=== PATIENT | female | born 1960 | race Caucasian/White ===

== ENCOUNTER 2016-05-04 13:59 | Emergency (ER) ==
[2016-05-04 14:34] LABS: URINE CULTURE NEEDED? NO; URINE MICRO REVIEW NEEDED? NO; URINE SOURCE CLEAN CATCH
[2016-05-04 14:37] LABS: BILIRUBIN URINE NEGATIVE (NEGATIVE); BLOOD URINE MODERATE (NEGATIVE); COLOR YELLOW; GLUCOSE URINE NEGATIVE (NEGATIVE); LEUKOCYTES URINE TRACE (NEGATIVE); NITRITE URINE NEGATIVE (NEGATIVE); PH URINE 5.5; PROTEIN URINE 30 mg/dL (NEGATIVE); SP GRAVITY URINE 1.019; TURBIDITY URINE CLEAR (CLEAR); UROBILINOGEN URINE NORMAL (NORMAL)
[2016-05-04 14:38] LABS: UR EPITHELIAL CELLS <10 /HPF (<10); URINE BACTERIA NEGATIVE /HPF; URINE RBC TNTC /HPF (<10)
[2016-05-04] MEDS ORDERED: TORADOL IV ONE (14:38)
[2016-05-04] MEDS ORDERED: ZOFRAN IV ONE (14:39)
--- NOTE | 2016-05-04 14:42 | PROVIDER DOCUMENTATION ---
HPI-Abdominal Pain/GI Problem - General Chief Complaint: Flank Pain Stated Complaint: KIDNEY/BACK PAIN Time Seen by Provider: 05/04/16 14:18 Source: patient Allergies/Adverse Reactions: Patient Allergies Allergy/AdvReac Type Severity Reaction Status Date / Time oseltamivir phosphate * Allergy Severe ANAPHYLAXIS Verified 05/04/16 14:36 [From Tamiflu] Penicillins Allergy Intermediate HIVES Verified 05/04/16 14:36 Home Medications: Atenolol 25 mg PO DAILY 10/15/13 - History of Present Illness-ABD Nature of Presenting Problems: patient is a 56 y/o F that presents with left flank pain that radiates to her back and LLQ. She has n/v and chills. symptoms began 24 hours ago and have been intermitted. patient denies fever. has had some hematuria. Abdominal Pain Onset Location: reports: flank (left) Pain Radiation: reports: LLQ, back Quality of Pain: reports: sharp Severity in ED: reports: moderate Onset/Duration: reports: abrupt, 24 hours ago Timing: reports: still present, intermittent Activities at Onset: reports: none Exposure to sick contacts?: No Modifying Factors: worse with: urinating Associated Symptoms: reports: back/neck pain, genitourinary problems, nausea, vomiting. denies: arm pain, chest pain, diarrhea, dizziness, EENT symptoms, fever/chills, shortness of breath Similar Symptoms Previously?: No Recently seen or treated by another doctor?: No Review of Systems - Adult - REVIEW OF SYSTEMS - ADULT Constitutional: denies: chills, fever Eyes: reports: no symptoms reported Ears, Nose, Mouth & Throat: reports: no symptoms reported Cardiovascular: denies: chest pain, palpitations, syncope Respiratory: denies: cough, shortness of breath, wheezing Gastrointestinal: reports: abdominal pain, nausea, vomiting. denies: diarrhea Genitourinary: reports: dysuria, flank pain. denies: hematuria, urinary retention, urgency Musculoskeletal: reports: back pain. denies: joint pain Integumentary: reports: no symptoms reported Neurological: reports: no symptoms reported Psychiatric: reports: no symptoms reported Endocrine: reports: no symptoms reported Hematologic/Lymphatic: reports: no symptoms reported Allergic/Immunologic: reports: no symptoms reported All Other Systems: Reviewed and Negative Past History - Adult - PAST MEDICAL HISTORY-ADULT Review of Records: reports: Old Records Reviewed, Nursing Assessment Review, Medications Reviewed Cardiovascular: reports: arrhythmia (tachycardia), HTN - PRIOR SURGERIES/PROCEDURES Surgical/Procedure History: reports: reviewed, not pertinent - IMMUNIZATION STATUS Childhood Immunizations: See Nurse Assessment Flu Vaccine: See Nurse Assessment - FAMILY HISTORY Family History: CVA/TIA - SOCIAL HISTORY Smoking: non-smoker Living Situation: family Physical Exam-General - PHYSICAL EXAM-ADULT Initial Vital Signs Reviewed: Yes - CONSTITUTIONAL General Appearance: alert, mild distress, anxious - EYES Eyes: PERRL/EOMI, pink conjunctivae - HEAD, EARS, NOSE, MOUTH & THROAT HENMT: normocephalic/atraumatic, moist mucous membranes, normal ENT inspection - NECK Neck: full range of motion, normal inspection. negative: lymphadenopathy - RESPIRATORY Respiratory: lungs clear, normal breath sounds, no respiratory distress, no accessory muscle use - CARDIOVASCULAR Cardiovascular: regular rate, rhythm, no edema, no murmur - GASTROINTESTINAL (ABDOMEN) Abdominal Exam: normal bowel sounds, non tender, soft, no organomegaly, no pulsatile mass - MUSCULOSKELETAL Back Exam: no vertebral tenderness, CVA tenderness (left) Extremity: normal range of motion, normal inspection - SKIN Integumentary: normal color, warm/dry - NEUROLOGIC Neurologic: grossly normal, no motor/sensory deficits - PSYCHIATRIC Psych/Mental Status: oriented x 3, anxious Progress - PLAN OF CARE/RESULTS Progress/Plan/Lab Results: Vital Signs Temp Pulse Resp BP Pulse Ox 05/04/16 14:03 97.2 F L 98 H 16 150/98 100 oseltamivir phosphate * [From Tamiflu] Allergy (Severe, Verified 05/04/16 14:36) ANAPHYLAXIS Penicillins Allergy (Intermediate, Verified 05/04/16 14:36) HIVES Atenolol 25 mg PO DAILY 10/15/13 I&O 05/03/16 05/04/16 05/05/16 06:59 06:59 06:59 Output Total 15 Balance -15 Laboratory 05/04/16 14:20 Urine Source CLEAN CATCH Urine Color YELLOW Urine Turbidity CLEAR Urine pH 5.5 Ur Specific [place] 1.019 Urine Protein 30 A Ur Glucose (Stick) NEGATIVE Ur Ketones (Stick) NEGATIVE Urine Blood MODERATE A Urine Nitrite NEGATIVE Urine Bilirubin NEGATIVE Urobilinogen Dipstick NORMAL Urine Leukocytes TRACE A Urine WBC (Auto) 10-20 A Urine RBC (Auto) TNTC A U Epithel Cells (Auto) <10 Urine Bacteria (Auto) NEGATIVE Orders Category Date Time Status RENAL STONE SEARCH [CT] Stat Exams 05/04/16 14:33 Ordered BASIC METABOLIC PANEL [CHEM] Stat Lab 05/04/16 14:32 Uncollected CBC WITH ELECTRONIC DIFF [HEME] Stat Lab 05/04/16 14:32 Uncollected UA Reflex [URINALYSIS W/POSS RFLX CULT] [URINALYSIS] Lab 05/04/16 14:20 Completed Stat URIC ACID [CHEM] Stat Lab 05/04/16 14:32 Uncollected 0.9% Sodium Chloride Inj [Ns] 1,000 ml Med 05/04/16 14:45 Ordered IV 999 mls/hr Ketorolac [Toradol] Med 05/04/16 14:38 Discontinued 30 mg IV NOW ONE Ondansetron [Zofran] Med 05/04/16 14:39 Once 4 mg IV NOW ONE plan of care-labs, meds, ct rss Vital Signs Temp Pulse Resp BP Pulse Ox 05/04/16 14:03 97.2 F L 98 H 16 150/98 100 oseltamivir phosphate * [From Tamiflu] Allergy (Severe, Verified 05/04/16 14:36) ANAPHYLAXIS Penicillins Allergy (Intermediate, Verified 05/04/16 14:36) HIVES Atenolol 25 mg PO DAILY 10/15/13 I&O 05/03/16 05/04/16 05/05/16 06:59 06:59 06:59 Output Total 15 Balance -15 Laboratory 05/04/16 05/04/16 05/04/16 14:43 14:43 14:20 WBC 8.83 RBC 5.11 Hgb 14.5 Hct 43.1 MCV 84.3 MCH 28.4 MCHC 33.6 RDW Std Deviation 14.1 Plt Count 288 MPV 10.1 Immature Gran % (Auto) 0.0 Neut % (Auto) 62.4 Lymph % (Auto) 29.6 [place] % (Auto) 6.9 Eos % (Auto) 0.9 Baso % (Auto) 0.2 Immature Gran # (Auto) 0.00 Neut # (Auto) 5.51 Lymph # (Auto) 2.61 [place] # (Auto) 0.61 H Eos # (Auto) 0.08 Baso # (Auto) 0.02 Sodium 139 Potassium 4.2 Chloride 99 Carbon Dioxide 25 Anion Gap 15 BUN 10 Creatinine 0.9 Estimated GFR/1.73 m2 > 60 BUN/Creatinine Ratio 11 Glucose 112 H Calculated Osmolality 277 Uric Acid 6.1 H Calcium 9.9 Urine Source CLEAN CATCH Urine Color YELLOW Urine Turbidity CLEAR Urine pH 5.5 Ur Specific [place] 1.019 Urine Protein 30 A Ur Glucose (Stick) NEGATIVE Ur Ketones (Stick) NEGATIVE Urine Blood MODERATE A Urine Nitrite NEGATIVE Urine Bilirubin NEGATIVE Urobilinogen Dipstick NORMAL Urine Leukocytes TRACE A Urine WBC (Auto) 10-20 A Urine RBC (Auto) TNTC A U Epithel Cells (Auto) <10 Urine Bacteria (Auto) NEGATIVE Orders Category Date Time Status RENAL STONE SEARCH [CT] Stat Exams 05/04/16 14:33 Draft BASIC METABOLIC PANEL [CHEM] Stat Lab 05/04/16 14:43 Completed CBC WITH ELECTRONIC DIFF [HEME] Stat Lab 05/04/16 14:43 Completed UA Reflex [URINALYSIS W/POSS RFLX CULT] [URINALYSIS] Lab 05/04/16 14:20 Completed Stat URIC ACID [CHEM] Stat Lab 05/04/16 14:43 Completed 0.9% Sodium Chloride Inj [Ns] 1,000 ml Med 05/04/16 14:45 Active IV 999 mls/hr Ketorolac [Toradol] Med 05/04/16 14:38 Discontinued 30 mg IV NOW ONE Ondansetron [Zofran] Med 05/04/16 14:39 Discontinued 4 mg IV NOW ONE pt will be d/c f/u with in office. pt was clinically stable. - CT/MRI 1 CT Study: Renal Stone Impression: Abnormal CT Results: 7x6mm stone proximal left ureter mild to moderat hydro, stones r kid Departure - Departure Time of Disposition Order: 16:24 DIAGNOSIS: Kidney stone, Hydronephrosis Disposition: HOME 01 Certified Medical Emergency: Emergent Condition: Stable Prescriptions: Hydromorphone [Dilaudid] 2 mg PO Q3H PRN PRN #20 tablet PRN Reason: Pain Ondansetron [Zofran Odt] 4 mg PO Q6-8H PRN PRN #20 tab.rapdis PRN Reason: Vomiting Referrals: Italo Powell MD [Primary Care Provider] - Broussard,Jalil N., DO [STAFF PHYSICIAN] - (tomorrow morning call) Instructions: Kidney Stones, [id number], Hydronephrosis Attestation - Scribe Verification/Attestation Scribe:: Clay Umanzor Acting as Scribe for:: Robson Molina Scribe documention review:: This chart was documented by a scribe and accurately reflects the service the provider performed and the decisions made by the provider. Physician Attestation - Physician Attestation I, the provider, attest to the following statement:: Robson Molina Physician documentation Attestation:: This documentation recorded by the scribe accurately reflects the service I personally performed and the decisions made by me.
[2016-05-04] MEDS ORDERED: NS 1,000 ML IV SCH (14:45)
[2016-05-04 14:54] LABS: MANUAL DIFF NEEDED? NO
[2016-05-04 14:57] LABS: BASO% 0.2 % (0.0-0.8); EOS# 0.08 X1000 (0.0-0.7); EOS% 0.9 % (0.0-10.0); HEMATOCRIT 43.1 % (37.0-47.0); HEMOGLOBIN 14.5 g/dL (12.0-16.0); LYMPH# 2.61 X1000 (1.2-3.4); LYMPH% 29.6 % (20.5-51.1); MCH 28.4 PG (27-31); MCHC 33.6 g/dL (33-37); MCV 84.3 FL (81-99); MONO# 0.61 X1000 (0.11-0.59); MONO% 6.9 % (1.7-9.3); MPV 10.1 FL (7.4-10.4); NEUT% 62.4 % (42.2-75.2); PLT 288 X1000 (130-400); RBC 5.11 XMIL (4.2-5.4)
[2016-05-04 15:19] LABS: AGAP 15; BUN 10 mg/dL (8-22); CALCIUM 9.9 mg/dL (8.8-10.2); CHLORIDE 99 mmol/L (98-107); COSMO 277; POTASSIUM 4.2 mmol/L (3.5-5.1); SODIUM 139 mmol/L (136-145); TCO2 25 mmol/L (25-35); URIC ACID 6.1 mg/dL (2.4-5.7)
--- NOTE | 2016-05-04 15:47 | Diag Imaging Result Document ---
PROCEDURE NAME: RENAL STONE SEARCH - 05/04/2016 CT RENAL STONE SEARCH WITHOUT CONTRAST: A dose-reduction protocol was used. COMPARISON: No comparison exam. FINDINGS: There is a 7 x 6 mm stone in the proximal left ureter near the ureteropelvic junction. There is associated [id number] hydronephrosis on the left. There is no other left renal stone identified. There is an approximately 11 x 7 mm in axial dimensions stone at the lower pole infundibulum of the right kidney extending near the proximal portion of the renal pelvis. There are additional smaller stones in the lower right kidney. There is no right hydronephrosis. There is no evidence of bowel obstruction. There is no pericecal inflammation identified. There is no free air. There is fatty infiltration of the liver. There are no calcified gallstones seen. There are lumbar spine degenerative changes noted, particularly prominent at lower lumbar facets. IMPRESSION: 1. 7 x 6 mm stone in proximal left ureter with [id number] left hydronephrosis. 2. Multiple stones in right kidney, including a large stone in the right lower pole infundibulum. No right hydronephrosis.
[2016-05-04] MEDS ORDERED: DILAUDID IV ONE (16:42)
[2016-05-04 17:17] VITALS: BP 133/79
== END 2016-05-04 17:16 | disposition home or self-care (01) ==
LOC: ED 13:59
DX: N13.2 Hydronephrosis with renal and ureteral calculous obstruction (principal); R10.9 Unspecified abdominal pain; M54.9 Dorsalgia, unspecified; R10.32 Left lower quadrant pain; R11.2 Nausea with vomiting, unspecified; R68.83 Chills (without fever); R31.9 Hematuria, unspecified; R30.0 Dysuria; I10 Essential (primary) hypertension; Z79.899 Other long term (current) drug therapy; Z82.3 Family history of stroke
CPT/HCPCS: 74176; 80048; 81001; 84550; 85025; 96374; 96375; J1170; J1885; J2405; J7030